=== PATIENT | female | born 1980 | race Two or more races ===

== ENCOUNTER 2018-07-20 09:16 | Outpatient (CLI) | payer OTHER | END 2018-07-20 09:20 | disposition home or self-care (01) | LOC: LAB 09:16 | DX: J11.1 Influenza due to unidentified influenza virus with other respiratory manifestations (principal); J06.9 Acute upper respiratory infection, unspecified ==

== ENCOUNTER 2018-09-21 13:19 | Outpatient (CLI) | payer OTHER | END 2018-09-21 13:33 | disposition home or self-care (01) | LOC: MAMO-SONO 13:19 | DX: N64.4 Mastodynia (principal); Z12.31 Encounter for screening mammogram for malignant neoplasm of breast ==